=== PATIENT | female | born 1945 | race Caucasian/White ===

== ENCOUNTER 2022-01-05 10:38 | Inpatient (IN) | payer OTHER ==
[~2022-01-05] VITALS: Ht 152.4 cm; Wt 75.7 kg
[2022-01-05 10:46] VITALS: BP_SYST 140
[2022-01-05] MEDS ORDERED: NACL 0.9% 1,000 ML IV ONE (11:00)
[2022-01-05] MEDS ORDERED: ONDANSETRON HCL 4 MG/2 ML VIAL IVP ONE (11:00)
[2022-01-05] MEDS ORDERED: MORPHINE 4 MG INJ. 4 MG/ML VIAL IVP ONE (11:15)
--- NOTE | 2022-01-05 11:20 | NUR ---
DR. FERREIRA AT BEDSIDE TO ASSESS PT.
--- NOTE | 2022-01-05 11:27 | NUR ---
SCHEDULED MEDS GIVEN AND TOLERATED WELL. # 22 gauge angiocath placed to LFA. Use of asceptic technique. Opsite placed over site. Blood return noted. Blood for lab drawn from site. Flushed with 10 cc of normal saline. No evidence of infiltration noted. Patient tolerated well.
[2022-01-05 11:31] LABS: BASOPHILS % (AUTO) 0.3 % (0.0-2.0); EOSINOPHILS % (AUTO) 0.2 % (0.0-4.0); HEMATOCRIT 37.2 % (36-48); HEMOGLOBIN 12.6 g/dL (12.0-16.0); LYMPHOCYTES % (AUTO) 6.1 % (20.5-51.5); MEAN CORPUSCULAR HEMOGLOBIN 30 pg (27-31); MEAN CORPUSCULAR HGB CONC 34 % (32-36); MEAN CORPUSCULAR VOLUME 88 fL (79.0-98.0); MONOCYTES # (AUTO) 0.7 K/uL (0.0-1.0); MONOCYTES % (AUTO) 4.5 % (1.7-9.3); NEUTROPHILS # (AUTO) 14.4 K/uL (1.8-7.7); NEUTROPHILS % (AUTO) 88.9 % (40.0-70.0); PLATELET COUNT (AUTO) 225 K/uL (130-430); RED BLOOD CELL COUNT(AUTO) 4.21 MIL/uL (4.2-6.2); RED CELL DISTRIBUTION WIDTH 14.2 % (9.0-15.0); WHITE BLOOD COUNT (AUTO) 16.1 K/uL (4.8-10.8)
[2022-01-05 11:42] LABS: BILIRUBIN,URINE NEGATIVE (NEGATIVE); CLARITY/URINE CLEAR (CLEAR); COLOR,URINE YELLOW (YELLOW); GLUCOSE,URINE NEGATIVE (NEGATIVE); KETONES,URINE 1+ (NEGATIVE); LEUKOCYTE ESTERASE ,URINE TRACE (NEGATIVE); NITRITE, URINE NEGATIVE (NEGATIVE); PH,URINE 5.5 (5.0-8.0); PROTEIN URINE NEGATIVE (NEGATIVE)
[2022-01-05 11:42] LABS: ANION GAP 7 (5-15); CHLORIDE 102 mmol/L (98-107); CREATININE 0.77 mg/dL (0.55-1.30); GLUCOSE 128 mg/dL (70-99); UREA NITROGEN, BLOOD 17 mg/dL (8-21)
[2022-01-05 11:47] LABS: BLOOD, URINE TRACE (NEGATIVE)
[2022-01-05 12:02] LABS: ALANINE AMINOTRANSFERASE 40 U/L (12-78); ALBUMIN 3.3 g/dL (3.4-4.8); ASPARTATE AMINOTRANSFERASE 29 U/L (10-37); TOTAL BILIRUBIN 1.5 mg/dL (0.0-1.0)
--- NOTE | 2022-01-05 12:04 | NUR ---
PT'S C/T SCAN COMPLETED.
[2022-01-05 12:06] LABS: BACTERIA,URINE MODERATE /HPF (None Seen)
[2022-01-05] MEDS ORDERED: NS 500 ML IV ONE (12:45)
[2022-01-05] MEDS ORDERED: CIPROFLOXACIN LACT 400 MG/D5W 200 ML IV SCH ×3 (12:45→21:00)
[2022-01-05] MEDS ORDERED: metroNIDAZOLE 500 mg/NS 100 ML IV ONE (12:45)
[2022-01-05] MEDS ORDERED: CIPROFLOXACIN LACT 400 MG/D5W 200 ML IV ONE (13:00)
--- NOTE | 2022-01-05 13:01 | NUR ---
NIKOLE OBTAINED AND TAKEN TO LAB.
[2022-01-05] MEDS ORDERED: PRAV10TA PO (13:26)
[2022-01-05] MEDS ORDERED: ALBU2.5V7 INH (13:26)
[2022-01-05] MEDS ORDERED: SYN50 PO (13:26)
[2022-01-05] MEDS ORDERED: FLO44 INH (13:26)
[2022-01-05] MEDS ORDERED: MONT-40 PO (13:26)
[2022-01-05] MEDS ORDERED: ASCO500T20 PO (13:26)
--- NOTE | 2022-01-05 13:31 | NUR ---
[facility] COMPLETED.
[2022-01-05] MEDS ORDERED: D5/0.45 NS 1,000 ML IV ONE (14:00)
--- NOTE | 2022-01-05 14:08 | NUR ---
Admit bed requested Patient will be admitted to care of . Admitted to MEDICAL SURGICAL unit. Diagnosis DIVERTICULITIS, ABDOMINAL PAIN Inpatient (Yes or No) YES Observation (Yes or No) NO Orientation concerns or request close to nursing station (Yes or No) NO Covid Status NEGATIVE On vent or bipap NO Isolation requirements NONE Needs a sitter NO From Home (Yes or if No enter name of facility) YES Requires Dialysis (Yes or No) NO Med Rec Completed (Yes of No) YES
--- NOTE | 2022-01-05 14:39 | NUR ---
SCHEDULED MEDS GIVEN ORDERED. PT DENIES PAIN. PT INFORMED OF THAT SHE WILL BE TRANSFERRING TO ROOM 129A.
--- NOTE | 2022-01-05 14:43 | NUR ---
Patient will be admitted to care of [facility]. Admitted to MEDICAL SURGICALunit. Will go to room 129A. Belongings list completed. Complete and up to date summary report printed. SBAR report to be given at bedside with opportunity for questions.
--- NOTE | 2022-01-05 15:05 | NUR ---
ADMISSION NOTE Received pt AAOx4, no s/s resp distress, c/o pain 10/20 to left mid abd-will check on pain medication. Pt has Dx of Diverticulitis-briefly discussed with pt-will provide written information. Pt oriented to room and call light. Pain management, skin and safety discussed-teach back done. Call light within reach.
[2022-01-05 15:15] VITALS: BP_SYST 152
[2022-01-05] MEDS: MORPHINE 2 MG/ML INJ. SYRINGE IVP PRN (15:28)
[2022-01-05 16:08] VITALS: BP_SYST 152
[2022-01-05 19:00] VITALS: BP_SYST 138
--- NOTE | 2022-01-05 19:07 | NUR ---
CLOSING NOTE Pt resting quietly in bed with no s/s resp distress, no further c/o pain or discomfort. IVF infusing well at ordered rate with no s/s infiltration to site. Endorsed care to sheriff officer nurse. Call light within reach.
[2022-01-05 20:00] VITALS: BP_SYST 138
[2022-01-05] MEDS: CIPROFLOXACIN LACT 400 MG/D5W 200 ML IV SCH (20:48)
[2022-01-05] MEDS: metroNIDAZOLE 500 mg/NS 100 ML IV SCH (21:14)
[2022-01-06 00:34] VITALS: BP_SYST 144
[2022-01-06] MEDS: MORPHINE 2 MG/ML INJ. SYRINGE IVP PRN ×5 (01:13→21:00)
[2022-01-06] MEDS: metroNIDAZOLE 500 mg/NS 100 ML IV SCH ×3 (05:14→21:05)
[2022-01-06 07:59] VITALS: BP_SYST 140
[2022-01-06] MEDS: CIPROFLOXACIN LACT 400 MG/D5W 200 ML IV SCH ×2 (08:55→21:03)
[2022-01-06] MEDS ORDERED: ONDANSETRON HCL 4 MG/2 ML VIAL ONE (09:57)
[2022-01-06 11:13] VITALS: BP_SYST 138
[2022-01-06] MEDS ORDERED: POTASSIUM CHLORIDE 20 MEQ TAB.PRT.SR PO ONE (14:00)
[2022-01-06 16:12] VITALS: BP_SYST 128
--- NOTE | 2022-01-06 16:32 | NUR ---
0800: NO S/S OF ANY DISTRESS OR C/O ANY DISCOMFORT @ THIS MOMENT, WILL CONTINUE TO MONITOR PATIENT. 1200: NO ADVERSE REACTION FROM IV ANTIBIOTIC NOTED, MEDICATED FOR PAIN AND N/V EFFECTIVE W/IN 1/2 HR POST ADMINISTRATION. WILL CONTINUE TO MONITOR PATIENT. 1600: REMAINED FREE OF ANY ADVERSE REACTION. MEDICATED X 1 FOR PAIN
--- NOTE | 2022-01-06 19:00 | NUR ---
1900: NO CHANGE FROM INITIAL ASSESSMENT, MEDICATED PRN, KEPT NPO EXCEPT ICE CHIP. ENDORSED PATIENT TO PM SHIFT NURSE.
--- NOTE | 2022-01-06 19:32 | NUR ---
AWAKE ALERT COMPLAINT OF 8/10 CRAMPING IN LEFT UPPER QUADRANT. OF KNOW PRN MEDICATION NOT AVAILABLE. SUGGESTION FOR REPOSITION, HEAT, AMBULATION. PATIENT NEED REINFORCEMENT OF EDUCATION.
[2022-01-06 19:35] LABS: BASOPHILS % (AUTO) 0.3 % (0.0-2.0); EOSINOPHILS % (AUTO) 0.4 % (0.0-4.0); HEMOGLOBIN 11.9 g/dL (12.0-16.0); LYMPHOCYTES # (AUTO) 0.9 K/uL (1.0-5.5); LYMPHOCYTES % (AUTO) 7.4 % (20.5-51.5); MEAN CORPUSCULAR HEMOGLOBIN 30 pg (27-31); MEAN CORPUSCULAR HGB CONC 34 % (32-36); MEAN CORPUSCULAR VOLUME 88 fL (79.0-98.0); MONOCYTES # (AUTO) 1.1 K/uL (0.0-1.0); MONOCYTES % (AUTO) 9.1 % (1.7-9.3); NEUTROPHILS # (AUTO) 9.7 K/uL (1.8-7.7); NEUTROPHILS % (AUTO) 82.8 % (40.0-70.0); PLATELET COUNT (AUTO) 215 K/uL (130-430); RED BLOOD CELL COUNT(AUTO) 3.96 MIL/uL (4.2-6.2); RED CELL DISTRIBUTION WIDTH 14.1 % (9.0-15.0); WHITE BLOOD COUNT (AUTO) 11.7 K/uL (4.8-10.8)
[2022-01-06 19:40] VITALS: BP_SYST 122
[2022-01-06] MEDS: cefTRIAXone 1 GM in D5W 50 ML IV SCH (21:09)
[2022-01-06 23:33] VITALS: BP_SYST 124
--- NOTE | 2022-01-06 23:45 | NUR ---
APPRECIATE VITAL SIGNS PER REAL ESTATE ADMINISTRATIVE ASSISTANT. GIVEN INSTRUCTION ON DIET MODIFICATION AND PATIENT WILL NEED REINFORCEMENT OF TEACHING / DIETARY CONSULT TO PROVIDE RESOURCES FOR MEAL PLANNING.
[2022-01-07] VITALS: BP_SYST 124
[2022-01-07] MEDS: MORPHINE 2 MG/ML INJ. SYRINGE IVP PRN ×2 (01:40→06:56)
--- NOTE | 2022-01-07 02:45 | NUR ---
PATIENT AROUSAL TO VOICE. NOTES RELIEF AFTER PAIN MEDICATION GIVEN. CALL LIGHT WITHIN REACH, BED IS IN LOWEST POSITION WITH SIDE RAILS UP X3 AND WHEELS SET TO LOCK. SHE HAS EVEN UNLABORED BREATHING ON ROOM AIR.
[2022-01-07 05:48] LABS: BASOPHILS % (AUTO) 0.4 % (0.0-2.0); EOSINOPHILS # (AUTO) 0.1 K/uL (0.0-0.4); EOSINOPHILS % (AUTO) 0.7 % (0.0-4.0); HEMATOCRIT 36.1 % (36-48); HEMOGLOBIN 12.3 g/dL (12.0-16.0); LYMPHOCYTES # (AUTO) 1.1 K/uL (1.0-5.5); LYMPHOCYTES % (AUTO) 11.8 % (20.5-51.5); MEAN CORPUSCULAR HEMOGLOBIN 30 pg (27-31); MEAN CORPUSCULAR HGB CONC 34 % (32-36); MEAN CORPUSCULAR VOLUME 89 fL (79.0-98.0); MONOCYTES # (AUTO) 1.3 K/uL (0.0-1.0); MONOCYTES % (AUTO) 13.2 % (1.7-9.3); NEUTROPHILS # (AUTO) 7.1 K/uL (1.8-7.7); NEUTROPHILS % (AUTO) 73.9 % (40.0-70.0); PLATELET COUNT (AUTO) 225 K/uL (130-430); RED BLOOD CELL COUNT(AUTO) 4.05 MIL/uL (4.2-6.2); RED CELL DISTRIBUTION WIDTH 13.9 % (9.0-15.0); WHITE BLOOD COUNT (AUTO) 9.6 K/uL (4.8-10.8)
[2022-01-07] MEDS: metroNIDAZOLE 500 mg/NS 100 ML IV SCH ×3 (06:59→23:16)
[2022-01-07 07:13] LABS: ALBUMIN 2.8 g/dL (3.4-4.8); ANION GAP 7 (5-15); CALCIUM 8.9 mg/dL (8.4-11.0); CHLORIDE 102 mmol/L (98-107); CREATININE 0.65 mg/dL (0.55-1.30); GLUCOSE 110 mg/dL (70-99); TOTAL BILIRUBIN 1.4 mg/dL (0.0-1.0); UREA NITROGEN, BLOOD 9 mg/dL (8-21)
[2022-01-07 08:54] LABS: ALANINE AMINOTRANSFERASE 61 U/L (12-78); ASPARTATE AMINOTRANSFERASE 70 U/L (10-37)
[2022-01-07] MEDS: CIPROFLOXACIN LACT 400 MG/D5W 200 ML IV SCH ×2 (09:04→20:56)
[2022-01-07 12:00] VITALS: BP_SYST 130
[2022-01-07] MEDS: MORPHINE 4 MG INJ. 4 MG/ML VIAL IVP PRN ×3 (12:38→23:45)
[2022-01-07 16:00] VITALS: BP_SYST 128
--- NOTE | 2022-01-07 19:15 | NUR ---
OPENING NOTE REPORT RECEIVED FROM DAYSHIFT NURSE. PATIENT RECEIVED LYING IN BED, NO S/S OF ACUTE DISTRESS. BREATHING EVEN AND UNLABORED. HOB RAISED. IV PATENT, NO SIGNS OF INFILTRATION OR INFECTION NOTED. CALL LIGHT WITH PATIENT. BED IS LOCKED AND AT LOWEST POSITION. WILL CONTINUE TO MONITOR.
[2022-01-07 20:00] VITALS: BP_SYST 141
[2022-01-07] MEDS: cefTRIAXone 1 GM in D5W 50 ML IV SCH (20:10)
--- NOTE | 2022-01-07 23:30 | NUR ---
PAIN PATIENT COMPLAINING OF PAIN. PRN MEDICATION TO BE ADMINISTERED. WILL MONITOR AND REASSESS
[2022-01-08] VITALS: BP_SYST 138
--- NOTE | 2022-01-08 03:11 | NUR ---
ROUNDS PATIENT IN BED, RESTING, NO SIGNS OF DISCOMFORT NOTED. CHEST RISE AND FALL EVEN BILATERALLY. WILL MONITOR.
[2022-01-08] MEDS: MORPHINE 4 MG INJ. 4 MG/ML VIAL IVP PRN ×3 (03:53→23:47)
[2022-01-08] MEDS: metroNIDAZOLE 500 mg/NS 100 ML IV SCH ×3 (06:00→21:44)
--- NOTE | 2022-01-08 06:08 | NUR ---
CLOSING NOTE PATIENT IN BED, RESTING. NO S/S OF ACUTE DISTRESS. BREATHING EVEN AND UNLABORED. HOB RAISED. IV ANTIBIOTICS INFUSING AT THIS TIME. IV SITE PATENT, NO SIGNS OF INFILTRATION OR INFECTION NOTED. ALL NEEDS MET THROUGHOUT SHIFT. FALL, SAFETY PRECAUTIONS MAINTAINED THROUGHOUT SHIFT. WILL CONTINUE TO MONITOR UNTIL PATIENT CARE IS ENDORSED TO ONCOMING DAYSHIFT NURSE.
[2022-01-08 08:00] VITALS: BP_SYST 141
[2022-01-08] MEDS: CIPROFLOXACIN LACT 400 MG/D5W 200 ML IV SCH ×2 (09:17→20:11)
[2022-01-08 12:00] VITALS: BP_SYST 139
--- NOTE | 2022-01-08 14:23 | NUR ---
CONSULTATION REASON FOR CONSULT: PERITONITIS CONSULTING PHYSICIAN: Elba GONZALEZ ORDERED BY: Bertha PABLO SPOKE TO DR GONZALEZ HIMSELF AND IS AWARE OF THE CONSULT [phone]
--- NOTE | 2022-01-08 14:30 | NUR ---
CONSULTATION REASON FOR CONSULT: DIVERTICULITIS CONSULTING PHYSICIAN: Mary AMBROSIO ORDERED BY: Bertha PABLO SPOKE WITH JONN [phone]
[2022-01-08 16:00] VITALS: BP_SYST 136
[2022-01-08] MEDS: ONDANSETRON HCL 4 MG/2 ML VIAL IVP PRN (18:08)
[2022-01-08] MEDS: cefTRIAXone 1 GM in D5W 50 ML IV SCH (18:08)
--- NOTE | 2022-01-08 19:15 | NUR ---
OPENING NOTE REPORT RECEIVED FROM DAYSHIFT NURSE. PATIENT RECEIVED LYING IN BED, AWAKE, ALERT, NO S/S OF ACUTE DISTRESS, PATIENT DENIES PAIN. BREATHING EVEN AND UNLABORED. IV SITE PATENT, NO SIGNS OF INFILTRATION OR INFECTION NOTED. CALL LIGHT WITH PATIENT. BED IS LOCKED AND AT LOWEST POSITION. WILL CONTINUE TO MONITOR .
[2022-01-08 20:00] VITALS: BP_SYST 151
--- NOTE | 2022-01-08 23:00 | NUR ---
ROUNDS PATIENT IN BED RESTING. NO SIGNS OF DISCOMFORT. ALL NEEDS MET. WILL CONTINUE TO MONITOR.
[2022-01-09 00:59] VITALS: BP_SYST 131
[2022-01-09] MEDS: ONDANSETRON HCL 4 MG/2 ML VIAL IVP PRN (00:59)
--- NOTE | 2022-01-09 04:00 | NUR ---
ROUNDS PATIENT IN BED, NO SIGNS OF DISCOMFORT NOTED. ALL NEEDS MET. WILL CONTINUE TO MONITOR.
[2022-01-09] MEDS: metroNIDAZOLE 500 mg/NS 100 ML IV SCH ×3 (05:01→22:00)
[2022-01-09] MEDS: MORPHINE 4 MG INJ. 4 MG/ML VIAL IVP PRN (05:05)
--- NOTE | 2022-01-09 06:11 | NUR ---
CLOSING NOTE PATIENT IN BED, RESTING. NO S/S OF ACUTE DISTRESS. BREATHING IS EVEN AND UNLABORED. HOB RAISED. IV SITE IS PATENT, NO SIGNS OF INFILTRATION OR INFECTION NOTED. ALL NEEDS MET THROUGHOUT SHIFT. FALL, SAFETY PRECAUTIONS MAINTAINED THROUGHOUT SHIFT. WILL CONTINUE TO MONITOR UNTIL PATIENT CARE IS ENDORSED TO ONCOMING DAYSHIFT NURSE.
--- NOTE | 2022-01-09 07:02 | NUR ---
receive the patient form the settlement agent rn in a stable condition with admitting diagnosis of diverticulitis , aox4 . no complain at this time . no sign and symptoms of respiratory distress . will continue to monitor .
[2022-01-09 07:26] LABS: ANION GAP 7 (5-15); CALCIUM 8.3 mg/dL (8.4-11.0); CHLORIDE 104 mmol/L (98-107); CREATININE 0.58 mg/dL (0.55-1.30); GLUCOSE 92 mg/dL (70-99); UREA NITROGEN, BLOOD 12 mg/dL (8-21)
[2022-01-09 08:00] VITALS: BP_SYST 93
--- NOTE | 2022-01-09 08:04 | NUR ---
md mitchell the surgeon made some rounds with the patinet . the rn was told to have the patient on clear liquid diet . and forward to mechanical soft diet if tolerated . noted and carried out
[2022-01-09 08:46] LABS: BASOPHILS % (AUTO) 0.4 % (0.0-2.0); EOSINOPHILS # (AUTO) 0.1 K/uL (0.0-0.4); EOSINOPHILS % (AUTO) 1.4 % (0.0-4.0); HEMOGLOBIN 12.6 g/dL (12.0-16.0); LYMPHOCYTES # (AUTO) 1.2 K/uL (1.0-5.5); LYMPHOCYTES % (AUTO) 15.7 % (20.5-51.5); MEAN CORPUSCULAR HEMOGLOBIN 30 pg (27-31); MEAN CORPUSCULAR HGB CONC 34 % (32-36); MEAN CORPUSCULAR VOLUME 89 fL (79.0-98.0); MONOCYTES # (AUTO) 0.9 K/uL (0.0-1.0); MONOCYTES % (AUTO) 11.7 % (1.7-9.3); NEUTROPHILS # (AUTO) 5.6 K/uL (1.8-7.7); NEUTROPHILS % (AUTO) 70.8 % (40.0-70.0); PLATELET COUNT (AUTO) 286 K/uL (130-430); RED BLOOD CELL COUNT(AUTO) 4.18 MIL/uL (4.2-6.2); RED CELL DISTRIBUTION WIDTH 13.8 % (9.0-15.0); WHITE BLOOD COUNT (AUTO) 7.9 K/uL (4.8-10.8)
[2022-01-09] MEDS: CIPROFLOXACIN LACT 400 MG/D5W 200 ML IV SCH ×2 (09:20→20:20)
[2022-01-09 09:39] LABS: ERYTHROCYTE SEDIMENTATION RATE 64 MM/HR (0-20)
[2022-01-09] MEDS ORDERED: POTASSIUM CHLORIDE 20 MEQ TAB.PRT.SR PO ONE (13:30)
[2022-01-09] MEDS: cefTRIAXone 1 GM in D5W 50 ML IV SCH ×2 (17:57→19:29)
--- NOTE | 2022-01-09 19:01 | NUR ---
will endorse to insurance investigator rn for continuity of care
--- NOTE | 2022-01-09 19:20 | NUR ---
OPENING NOTE PT IS SITTING AT SIDE OF BED COMPLAINING OF 4/10 PAIN. NO APPARENT DISTRESS NOTED AT THIS TIME. BED IS IN LOWEST POSITION WITH SAFETY PRECAUTIONS IN PLACE. CALL LIGHT IS WITHIN REACH, PT VERBALIZED HOW TO USE IT. IV FLUIDS RUNNING ORDERED.
[2022-01-09] MEDS: MORPHINE 2 MG/ML INJ. SYRINGE IVP PRN (19:42)
[2022-01-09 20:00] VITALS: BP_SYST 142
--- NOTE | 2022-01-09 20:27 | NUR ---
antibiotic Cipro Scheduled med, Cipro administered. Reviewed side effects and she verbalized understanding.
--- NOTE | 2022-01-09 23:56 | NUR ---
IV RE-INSERTION: Complaining of leaking to IV site. Restarted on 01/09. Successful after 3 attempts. Resumed current IVPB Cipro @ 200ml per hour. Will observe for any signs of infiltration. No complaints of pain.
[2022-01-10] VITALS: BP_SYST 147
[2022-01-10 01:01] VITALS: BP_SYST 126
[2022-01-10] MEDS: metroNIDAZOLE 500 mg/NS 100 ML IV SCH ×3 (05:18→21:49)
--- NOTE | 2022-01-10 05:38 | NUR ---
Irina Administered scheduled antibiotic. Reviewed side effects with patient and she verbalized understanding. Presently infusing via IV to RFA, patent.
--- NOTE | 2022-01-10 06:55 | NUR ---
CLOSING NOTE PT IS LYING IN BED WITH EYES OPEN. NO APPARENT SIGNS OF DISTRESS NOTED AT HIS TIME. BED IN LOWEST POSITION WITH FALL AND SAFETY PRECAUTIONS IN PLACE. CALL LIGHT WITHIN REACH. ALL NEEDS MET AT THIS TIME.
[2022-01-10] MEDS: ONDANSETRON HCL 4 MG/2 ML VIAL IVP PRN (07:03)
[2022-01-10 07:08] LABS: BASOPHILS % (AUTO) 0.3 % (0.0-2.0); EOSINOPHILS # (AUTO) 0.1 K/uL (0.0-0.4); HEMATOCRIT 37.8 % (36-48); HEMOGLOBIN 12.9 g/dL (12.0-16.0); LYMPHOCYTES # (AUTO) 1.5 K/uL (1.0-5.5); LYMPHOCYTES % (AUTO) 21.4 % (20.5-51.5); MEAN CORPUSCULAR HEMOGLOBIN 30 pg (27-31); MEAN CORPUSCULAR HGB CONC 34 % (32-36); MEAN CORPUSCULAR VOLUME 89 fL (79.0-98.0); MONOCYTES # (AUTO) 0.8 K/uL (0.0-1.0); MONOCYTES % (AUTO) 11.6 % (1.7-9.3); NEUTROPHILS # (AUTO) 4.6 K/uL (1.8-7.7); NEUTROPHILS % (AUTO) 64.7 % (40.0-70.0); PLATELET COUNT (AUTO) 328 K/uL (130-430); RED BLOOD CELL COUNT(AUTO) 4.26 MIL/uL (4.2-6.2); WHITE BLOOD COUNT (AUTO) 7.2 K/uL (4.8-10.8)
--- NOTE | 2022-01-10 07:30 | NUR ---
receive the patient from the plant operator/shift supervisor rn in a stable condition with admitting diagnosis of diverticulitis . on antibiotics therapy for this treatment . no sign and symptoms of respiratory distress , no complain of at this time . will continue to monitor
[2022-01-10 08:00] VITALS: BP_SYST 138
[2022-01-10 08:46] LABS: ALANINE AMINOTRANSFERASE 82 U/L (12-78); ALBUMIN 2.6 g/dL (3.4-4.8); ANION GAP 8 (5-15); ASPARTATE AMINOTRANSFERASE 43 U/L (10-37); C-REACTIVE PROTEIN QUANT 7.4 mg/dL (0-0.5); CHLORIDE 105 mmol/L (98-107); CREATININE 0.57 mg/dL (0.55-1.30); GLUCOSE 115 mg/dL (70-99); TOTAL BILIRUBIN 0.3 mg/dL (0.0-1.0); UREA NITROGEN, BLOOD 8 mg/dL (8-21)
[2022-01-10 10:55] LABS: ERYTHROCYTE SEDIMENTATION RATE 55 MM/HR (0-20)
[2022-01-10 16:28] VITALS: BP_SYST 158
[2022-01-10] MEDS ORDERED: POTASSIUM CHLORIDE 20 MEQ TAB.PRT.SR PO ONE ×2 (18:15)
--- NOTE | 2022-01-10 18:30 | NUR ---
will endorse to night cleaner rn for continuity of care
[2022-01-10 22:10] VITALS: BP_SYST 150
[2022-01-10 22:20] VITALS: BP_SYST 135
[2022-01-11] VITALS (7 sets, daily range): BP systolic 141–162
[2022-01-11] MEDS: MORPHINE 2 MG/ML INJ. SYRINGE IVP PRN (04:01)
[2022-01-11] MEDS: metroNIDAZOLE 500 mg/NS 100 ML IV SCH ×2 (05:18→13:55)
--- NOTE | 2022-01-11 07:30 | NUR ---
OPENING NOTES: PATIENT IS RESTING IN BED QUIETLY. AAOX4 ABLE TO MAKE NEEDS KNOWN. NO ADDITIONAL DISTRESS NOTED. EXPLAINED POC AND PATIENT VERBALIZED UNDERSTANDING. BED IN LOW AND LOCK POSITION. CALL LIGHT WITHIN REACH. STABLE CONDITION AT THIS TIME.
[2022-01-11] MEDS ORDERED: POTASSIUM CHLORIDE 20 MEQ TAB.PRT.SR PO ONE (12:30)
[2022-01-11] MEDS ORDERED: LEVO250T73 PO (14:10)
[2022-01-11] MEDS ORDERED: METR-154 PO (14:11)
--- NOTE | 2022-01-11 18:35 | NUR ---
DC HOME: EXPLAINED AND GAVE DC INSTRUCTIONS AND PATIENT VERBALIZED UNDERSTANDING. AT THE BEDSIDE TO DRIVE HER HOME. IV REMOVED FROM THE RFA. IV CATH INTACT WHEN REMOVED. COVER SITE WITH GAUZE AND SECURE WITH BAN-AID. NO ADDITIONAL DISTRESS NOTED. ALL PERSONAL BELONGINGS GIVEN TO PATIENT AND DENIES MISSING ITEMS. WHEELED OUT THE PATIENT IN A STABLE CONDITION ACCOMPANIED BY PRIMARY NURSE.
--- NOTE | 2022-01-24 13:32 | NUR ---
Glass Maker COMPUTER NUMERIC CONTROL SETTER made a Post Discharge Follow up Phone Call and spoke to former pt. Teresa who stated she is feeling much better. She has an apt. with her Speech Writer on 01/23. COMPUTER NUMERIC CONTROL SETTER pointed out the doctors orders to follow up with her PCP. Teresa stated she will call today to make an apt. Teresa stated she had a complaint and first spoke to kelly Rios and then spoke to Giuliana Garcia, Director in Med. Surge. Teresa stated the quality of care has gone down and if she needs to go to the hospital, [facility]. COMPUTER NUMERIC CONTROL SETTER thanked her for her input.
== END 2022-01-11 23:21 | disposition home or self-care (01) | DRG 392 ==
LOC: SED 10:38 → SMU 13:57
PROVIDERS: ADMIT Internal Medicine; ATTEND Internal Medicine
DX: K57.32 Diverticulitis of large intestine without perforation or abscess without bleeding (principal); N39.0 Urinary tract infection, site not specified; J45.909 Unspecified asthma, uncomplicated; Z20.822 Contact with and (suspected) exposure to COVID-19; E87.6 Hypokalemia; E66.9 Obesity, unspecified; I10 Essential (primary) hypertension; R79.89 Other specified abnormal findings of blood chemistry; E83.52 Hypercalcemia; E03.9 Hypothyroidism, unspecified; Z90.49 Acquired absence of other specified parts of digestive tract; Z68.32 Body mass index [BMI] 32.0-32.9, adult; D72.829 Elevated white blood cell count, unspecified
CPT/HCPCS: 36415; 76376; 76856-TC; 80048; 80053; 81000; 85025; 85651-TC; 86140; 87040; 87086; 96361; 96365; 96375; 99285; J0696; J0744; J2270; J2405; J3490; J7060; J7120